=== PATIENT | male | born 1935 | race Caucasian/White ===

== ENCOUNTER 2017-07-11 14:38 | Emergency (ER) | payer OTHER ==
[~2017-07-11] VITALS: Ht 167.6 cm; Wt 72.6 kg
[~2017-07-11 14:38] MED LIST: ANALGESIC325 MG PO; ASPIRIN325; ASPIRIN81 M2 PO; CARISOPRODOL 3350 MG PO; CELEXA20 MG PO; FLEXERIL PO; FLOMAX PO; GLUCOTROL5 MG PO; HYDROCODONE-AP1 EAC6 PO; KEFLEX500 MG PO; LIPITOR20 MG PO; LISINOPRIL5 MG PO; LOPRESSOR 50 MG50 M1 PO; NICODERM CQ1 EAC1 TD; NITROGLYCERIN0.4 MG SL; NOHOMEMEDICATIONS; NORCO 5-325 TA1 EACH PO; OMEPRAZOLE20 M2 PO; PLAVIX 75 MG TA75 M1 PO; PLAVIX 75 MG TA75 MG PO; PRINIVIL5 MG PO; PROSCAR 5MG TABL5 M1 PO; TOPROL XL 25 MG25 M1 PO; TOPROL XL25 MG PO; VICODIN 5-5001 EACH PO; ZOCOR40 MG PO
[2017-07-11 15:13] LABS: ABSOLUTE BASOPHILS 0.1 thou/uL (0.0-0.2); ABSOLUTE EOSINOPHILS 0.3 thou/uL (0.0-0.7); ABSOLUTE MONOCYTES 0.8 thou/uL (0.0-1.2); ABSOLUTE NEUTROPHILS 4.8 thou/uL (1.6-8.1); BASOPHILS 1.4 %; EOSINOPHILS 4.5 %; HEMOGLOBIN 14.5 gm/dL (14.0-18.0); LYMPHOCYTES 14.2 %; MCH 31.5 pg (26.0-34.0); MCHC 33.8 g/dL (28.0-37.0); MCV 93.3 fL (80.0-100.0); MONOCYTES 11.5 %; MPV 8.3 fl. (7.2-11.1); NUCLEATED RBCS 0 /100WBC; PLATELET COUNT* 310 thou/uL (150-400); POLYS 68.4 %; RBC 4.61 mil/uL (4.50-6.00); RDW-CV 13.9 % (10.5-14.5)
[2017-07-11 15:20] LABS: ANION GAP 6 mmol/L (7-16); BUN 19 mg/dL (7-18); CALCIUM 8.5 mg/dL (8.5-10.1); CHLORIDE 107 mmol/L (98-107); CO2 29 mmol/L (21-32); CREATININE 1.6 mg/dL (0.6-1.3); GLUCOSE 207 mg/dL (70-99); POTASSIUM 4.3 mmol/L (3.5-5.1); SODIUM 142 mmol/L (136-145)
[2017-07-11] MEDS ORDERED: PERCOCET PO (15:23)
[2017-07-11] MEDS ORDERED: LIDOCAINE VISC100 ML SWISH&SPIT (15:23)
[2017-07-11] MEDS ORDERED: ACYCLOVIR 400400 MG PO (15:23)
[2017-07-11 15:27] LABS: ALBUMIN 3.5 g/dL (3.4-5.0); ALKALINE PHOSPHATASE 94 U/L (46-116); LIPASE 91 U/L (73-393); SGOT 14 U/L (15-37); SGPT 19 U/L (30-65); TOTAL BILIRUBIN 0.4 mg/dL (<0.1-1.0); TROPONIN-I LEVEL <0.06 ng/mL (<0.06)
[2017-07-11 15:36] VITALS: BP 139/61
--- NOTE | 2017-07-12 12:20 | EKG ---
[place] [address] ELECTROCARDIOGRAM REPORT Name: THAO ROQUE [facility] [id number] Admission: 07/11/17 Attend Phys: Discharge: 07/11/17 Date of : 37 Report #: [id number] THIS REPORT FOR: //name// [facility] ED Test Date: 2017-07-11 Test Time: 15:11:38 Pat Name: THAO ROQUE Department: Room: Gender: M Activities Specialist: : [id number] Requested By: Cassi Wise Order Number: [id number] Christopher MD: Jet Escobar Measurements Intervals [place] Rate: 72 P: 64 ID: [id number] QRS: -48 QRSD: 96 T: 59 QT: 383 QTc: 420 Interpretive Statements Sinus rhythm Abnormal R-wave progression, early transition Inferior infarct, old Compared to ECG 10/22/2016 11:46:09 No significant changes Electronically Signed On 07-12-2017 12:20:36 DUPLICATING MACHINE SERVICER by Jet Escobar [email or web address] <ELECTRONICALLY SIGNED> By: Jet Escobar MD, [facility] 07/12/17 1220 10 10 Jet Escobar MD, FAC /EPI
== END 2017-07-11 15:37 | disposition home or self-care (01) ==
LOC: M.ERS 14:38
PROVIDERS: Physician Assistant
DX: B02.9 Zoster without complications (principal); E11.65 Type 2 diabetes mellitus with hyperglycemia; N40.0 Benign prostatic hyperplasia without lower urinary tract symptoms; I25.10 Atherosclerotic heart disease of native coronary artery without angina pectoris; E78.5 Hyperlipidemia, unspecified

== ENCOUNTER 2019-04-03 15:46 | Inpatient (IN) | payer OTHER ==
[~2019-04-03] VITALS: Ht 175.3 cm; Wt 73.2 kg
[~2019-04-03 15:46] MED LIST changes: +ACYCLOVIR 400400 MG PO; +LIDOCAINE VISC100 ML SWISH&SPIT; +PERCOCET PO
[2019-04-03 16:00] VITALS: BP 182/84
[2019-04-03 16:14] LABS: URINE BILIRUBIN NEGATIVE (Negative); URINE BLOOD NEGATIVE (Negative); URINE CLARITY CLEAR; URINE COLOR YELLOW; URINE GLUCOSE-RANDOM NEGATIVE (Negative); URINE KETONES NEGATIVE (Negative); URINE LEUKOCYTES-REFLEX TRACE (Negative); URINE NITRITE-REFLEX NEGATIVE (Negative); URINE PROTEIN NEGATIVE (Negative); URINE UROBILINOGEN 0.2 E.U./dl (0.2-1.0)
[2019-04-03 16:20] LABS: BACTERIA-REFLEX 1-9 Few /HPF (None Seen); CASTS None Seen /LPF (None Seen); CRYSTALS None Seen /LPF (None Seen); SQUAMOUS 0-3 Few /LPF (0-3); URINE RBC 0-2 Rare /HPF (0-2); URINE WBC-REFLEX 0-5 Rare /HPF (0-5)
[2019-04-03 16:20] LABS: ABSOLUTE EOSINOPHILS 0.5 thou/uL (0.0-0.7); ABSOLUTE LYMPHOCYTES 2.5 thou/uL (0.8-5.3); ABSOLUTE MONOCYTES 1.5 thou/uL (0.0-1.2); ABSOLUTE NEUTROPHILS 7.8 thou/uL (1.6-8.1); BASOPHILS 0.2 %; EOSINOPHILS 4.1 %; HEMOGLOBIN 15.3 gm/dL (14.0-18.0); LYMPHOCYTES 20.3 %; MCH 31.6 pg (26.0-34.0); MCHC 33.9 g/dL (28.0-37.0); MONOCYTES 12.3 %; MPV 8.9 fl. (7.2-11.1); NUCLEATED RBCS 0 /100WBC; POLYS 63.1 %; RBC 4.84 mil/uL (4.50-6.00); RDW-CV 13.8 % (10.5-14.5); WBC 12.3 thou/uL (4.0-11.0)
[2019-04-03 16:43] LABS: ALBUMIN 3.6 g/dL (3.4-5.0); MAGNESIUM 1.9 mg/dL (1.8-2.4); TOTAL BILIRUBIN 0.4 mg/dL (<0.1-1.0); TOTAL PROTEIN 7.4 g/dL (6.4-8.2)
[2019-04-03 16:49] LABS: CALCIUM 9.4 mg/dL (8.5-10.1); CREATININE 1.4 mg/dL (0.6-1.3); POTASSIUM 4.3 mmol/L (3.5-5.1)
[2019-04-03 17:07] LABS: PLATELET COUNT* 268 thou/uL (150-400)
[2019-04-03 17:23] LABS: APTT 27.1 Seconds (25.0-31.3); PROTIME 10.6 Seconds (9.20-11.50)
[2019-04-03 19:46] VITALS: BP 161/75
[2019-04-03 20:00] VITALS: BP 148/64
[2019-04-04] VITALS: BP 154/57
[2019-04-04 04:00] VITALS: BP 169/65
[2019-04-04 04:52] LABS: ABSOLUTE BASOPHILS 0.1 thou/uL (0.0-0.2); ABSOLUTE EOSINOPHILS 0.7 thou/uL (0.0-0.7); ABSOLUTE LYMPHOCYTES 2.3 thou/uL (0.8-5.3); ABSOLUTE MONOCYTES 1.3 thou/uL (0.0-1.2); ABSOLUTE NEUTROPHILS 4.7 thou/uL (1.6-8.1); BASOPHILS 1.2 %; HEMATOCRIT 37.1 % (42.0-52.0); LYMPHOCYTES 25.4 %; MCH 31.2 pg (26.0-34.0); MCHC 33.7 g/dL (28.0-37.0); MCV 92.5 fL (80.0-100.0); MONOCYTES 14.4 %; MPV 8.6 fl. (7.2-11.1); NUCLEATED RBCS 0 /100WBC; PLATELET COUNT* 277 thou/uL (150-400); RBC 4.01 mil/uL (4.50-6.00); RDW-CV 13.6 % (10.5-14.5); WBC 9.2 thou/uL (4.0-11.0)
[2019-04-04 04:53] LABS: HEMOGLOBIN 12.5 gm/dL (14.0-18.0)
[2019-04-04 05:14] LABS: CHOLESTEROL 210 mg/dL (<200); HDL CHOLESTEROL 35 mg/dL (>40); LDL CHOLESTEROL 162 mg/dL (<100); TRIGLYCERIDE 67 mg/dL (<150); VLDL 13 mg/dL (<40)
[2019-04-04 05:15] LABS: SERUM ASSESSMENT CLEAR
[2019-04-04 05:17] LABS: CALCIUM 8.6 mg/dL (8.5-10.1); CREATININE 1.4 mg/dL (0.6-1.3); POTASSIUM 4.3 mmol/L (3.5-5.1)
--- NOTE | 2019-04-04 07:00 | NUR ---
RECEIVED REPORT FROM KALYANI MAYES. PT TRANSFERRED TO 211. PT A&OX4. CARPENTER ROUGH IN PLACE. VSS. ADMISSION HISTORY & PHYSICAL ASSESSMENT COMPLETED AND CHARTED. ORIENTED TO ROOM & CALL LIGHT. NIH CHARTED. PT DENIES ANY PAIN OR DISCOMFORT. PT ABLE TO SLEEP WELL ON BED. CALL LIGHT WITHIN REACH.
[2019-04-04 08:00] VITALS: BP 153/69
--- NOTE | 2019-04-04 15:53 | NUR ---
Pt is A&O. Resides at home with his . Independent, continues to drive. completes cooking and cleaning. Pt has a cane and RW at home that he can use if needed. Supportive kids. No hx of HH or SNF. Goal is home at [place], therapies following.
[2019-04-04 16:00] VITALS: BP 119/50
--- NOTE | 2019-04-04 17:52 | 2DMMODE ---
[place] [address] 2 D/M-MODE ECHOCARDIOGRAM Name: JUDETHAO Room: [address] IN .R.#: [id number] Admission: 04/03/19 Attend Phys: Julio Mondragon, Discharge: Date of : 37 Date of Service: 04/04/19 1752 Report #: [id number] THIS REPORT FOR: //name// APPROVED REPORT Study performed: 04/04/2019 10:05:17 EXAM: Comprehensive 2D, Doppler, and color-flow Echocardiogram BSA: 1.91 HR: 59 bpm BP: 153/69 mmHg Other Information Study Quality: Fair Indications CVA/TIA 2D Dimensions IVSd: 12.08 (7-11mm) LVOT Diam: 16.58 (18-24mm) LVDd: 41.43 mm PWd: 10.67 (7-11mm) Ascending Ao: 36.55 (22-36mm) LVDs: 31.49 (25-40mm) Aortic Root: 27.57 mm Aortic Valve AoV Peak Saúl.: 0.97 m/s AO Peak Gr.: 3.80 mmHg LVOT Max P.99 mmHg AO Mean Gr.: 2.21 mmHg LVOT Mean P.84 mmHg LVOT Max V: 1.00 m/s AO V2 VTI: 24.59 cm LVOT Mean V: 0.63 m/s TEJ (VTI): 2.47 cm2 LVOT V1 VTI: 28.09 cm Mitral Valve E/A Ratio: 0.71 MV Decel. Time: 184.40 ms MV E Max Saúl.: 0.64 m/s MV PHT: 53.48 ms MVA (PHT): 4.11 cm2 TDI E/Lateral E': 4.92 E/Medial E': 9.14 Medial E' Saúl.: 0.07 m/s Lateral E' Saúl.: 0.13 m/[place] [address] 2 D/M-MODE ECHOCARDIOGRAM Name: THAO ROQUEBUR Room: [address] IN [facility].#: [id number] Admission: 04/03/19 Attend Phys: Julio Mondragon, Discharge: Date of : 37 Date of Service: 04/04/19 1752 Report #: [id number] Pulmonary Valve PV Peak Saúl.: 1.03 m/s PV Peak Gr.: 4.22 mmHg Tricuspid Valve TR Peak Gr.: 22.95 mmHg Left Ventricle The left ventricle is normal size. There is normal LV segmental wall motion. There is normal left ventricular wall thickness. Left ventricular systolic function is normal. The left ventricular ejection fraction is within the normal range. LVEF is 55-60%. Grade I - abnormal relaxation pattern. Right Ventricle The right ventricle is normal size. The right ventricular systolic function is normal. Atria The left atrium size is normal. The right atrium size is normal. Aortic Valve Mild aortic valve sclerosis. No aortic regurgitation is present. There is no aortic valvular stenosis. Mitral Valve The mitral valve is normal in structure. Mild mitral regurgitation. No evidence of mitral valve stenosis. Tricuspid Valve The tricuspid valve is normal in structure. Trace tricuspid regurgitation. Pulmonic Valve The pulmonary valve is normal in structure. There is no pulmonic valvular regurgitation. Great Vessels The aortic root is normal in size. IVC is normal in size and collapses >50% with inspiration. Pericardium There is no pericardial effusion. <Conclusion> [place] [address] 2 D/M-MODE ECHOCARDIOGRAM Name: THAO ROQUE NAKIA Room: [address]#: [id number] Admission: 04/03/19 Attend Phys: Julio Mondragon, Discharge: Date of : 37 Date of Service: 04/04/19 1752 Report #: [id number] The left ventricle is normal size. There is normal left ventricular wall thickness. Left ventricular systolic function is normal. The left ventricular ejection fraction is within the normal range. LVEF is 55-60%. Grade I - abnormal relaxation pattern. The right ventricle is normal size. The left atrium size is normal. Mild aortic valve sclerosis. No aortic regurgitation is present. There is no aortic valvular stenosis. The mitral valve is normal in structure. Mild mitral regurgitation. The tricuspid valve is normal in structure. IVC is normal in size and collapses >50% with inspiration. There is no pericardial effusion. There is normal LV segmental wall motion. <ELECTRONICALLY SIGNED> By: Manjinder Macdonald MD, FACC 04/04/191751 51 51 Manjinder Macdonlad MD, FACC /INF
--- NOTE | 2019-04-04 19:00 | NUR ---
PT VSS, PT SB ON TELE. PT A&OX4, PT LOW FALL RISK AND STAND BY ASSIST DUE TO REPORTED LEFT SIDED WEAKNESS AT ADMISSION. HOURLY ROUNDING PERFORMED, POSSESSIONS AND CALL LIGHT WITHIN REACH
[2019-04-04 20:00] VITALS: BP 115/67
--- NOTE | 2019-04-04 20:00 | NUR ---
RECEIVED REPORT AND ASSUMED CARE OF PT, ASSESSMENT COMPLETED. SPEECH CLEAR. SL WEAKNESS TO LT HAND. TELEMETRY ON SHOWING SB. NO COMPLAINTS VOICED. WILL CONT TO MONITOR AND ASSIST NEEDED.
[2019-04-05] VITALS (8 sets, daily range): BP systolic 96–156; BP diastolic 51–68
--- NOTE | 2019-04-05 06:59 | NUR ---
SLEPT WELL TONIGHT. GAIT STEADY TO AND FROM BR WITH SBA. TELEMETRY CONT TO SHOW SB. NO COMPLAINTS VOICED. ANXIOUS TO GO HOME TODAY. HS GOALS OF REST AND SAFETY ACHIEVED. HOURLY ROUNDING OBSERVED.
--- NOTE | 2019-04-05 08:38 | EKG ---
[place] [address] ELECTROCARDIOGRAM REPORT Name: THAO ROQUE Room: [address] ADM IN M.R.#: [id number] Admission: 04/03/19 Attend Phys: Julio Mondragon MD Discharge: Date of : 37 Report #: [id number] THIS REPORT FOR: //name// [facility] ED Test Date: 2019-04-03 Test Time: 15:58:37 Pat Name: THAO ROQUE Department: Room: [facility] Gender: M Installation And Repair Technician: ILIANA : [id number] Requested By: Cassi Umaña Order Number: [id number] MD: Chuck Desai Measurements Intervals [place] Rate: 70 P: 22 WI: 161 QRS: -56 QRSD: 103 T: 41 QT: 393 QTc: 425 Interpretive Statements Sinus rhythm Ventricular premature complex Abnormal R-wave progression, early transition Inferior infarct, old Baseline wander in lead(s) III,aVL,aVF Compared to ECG 07/11/2017 15:11:38 Ventricular premature complex(es) now present Myocardial infarct finding still present Electronically Signed On 04-05-2019 8:37:54 CDT by Chuck Desai [email or web address] <ELECTRONICALLY SIGNED> By: Chuck Desai MD, FACC 04/05/19 0837 1558 1558 Chuck Desai MD, FACC /EPI
--- NOTE | 2019-04-05 10:24 | NUR ---
ASSUMED CARE OF PATIENT THIS AM AT 0730. PATIENT IS ALERT AND ORIENTED X 4. HE DENIES PAIN AND DISCOMFORT. PATIENT STATES THAT HIS STRENGTH HAS RETURNED TO HIS LEFT SIDE. HE IS KHAN WELL. TELE SHOWS SINUS JOAN. PATIENT IS ANTICIPATING DISCHARGE TODAY. PATIENT IS UP TO THE BATHROOM WITH STANDBY ASSIST.
--- NOTE | 2019-04-05 12:11 | NUR ---
Biomedical Analytical Scientist: Met with patient. Reviewed stroke signs and symptoms, secondary stroke prevention, medications discussed, BP managment pt plans to begin checking BP at home. Pt concerned that it will be difficult to quite smoking and increase activity level. Reports minor numbness in left arm and clumsy left hand, mild left facial droop. Reinforced stroke education. Pt plans to discharge to home.
[2019-04-05] MEDS ORDERED: LIPITOR 20 MG T20 M1 PO (13:07)
[2019-04-05] MEDS ORDERED: ASA5UEC PO (13:14)
[2019-04-05] MEDS ORDERED: CLOPIDOGREL75 MG PO (16:38)
[2019-04-05] MEDS ORDERED: ASPIR 8181 M1 PO (16:41)
--- NOTE | 2019-04-15 14:24 | CON ---
[address] [address] CONSULTATION Name: THAO ROQUEBUR Room: [address] IN M.R.#: [id number] Admission: 04/03/19 Attend Phys: Julio Mondragon MD Discharge: 04/05/19 Date of : 37 Report #: [id number] THIS REPORT FOR: //name// CC: Julio Gan Taz DATE OF SERVICE: 04/04/2019 HISTORY OF PRESENT ILLNESS: This is an 84-year-old male patient who was admitted with left-sided weakness. Weakness was in the whole arm, but now it is mostly at the hand. He can still make a fist, but it is not that strong. He did not have these kind of symptoms before. Exact duration of these symptoms, is not clear, but even in the Emergency Room, it was last night, and it was outside the window for any intervention. He has improved some. REVIEW OF SYSTEMS: Positive for hypertension. He is also noncompliant. He was not taking his medications. He does have a history of coronary artery disease. He was being followed by a physical sciences professor, but he has not seen them for some time. He apparently also has a history of diabetes as per records. 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 It is not clear when the strokes were and what kind of symptoms the strokes ____. He is supposed to be on multiple medications, but he has refused to take them. He does have trouble with prostate in the past. He apparently also has a history of hyperlipidemia. He denies any new eye, ENT, cardiac, respiratory, GI, , musculoskeletal, constitutional, dermatological, hematological, psychiatric, throat, allergic symptom associated with present symptomatology. He does have prior symptoms as summarized above. FAMILY HISTORY: Unremarkable. SOCIAL HISTORY: He has a history of smoking. PAST MEDICAL HISTORY: Positive for stroke. PHYSICAL EXAMINATION: Indicate he is alert, responsive, able to follow simple commands. His speech, concentration, fund of knowledge, and memory is at his baseline. Cranial nerve examination 2-12 does not appear to be showing any definite abnormality. There is no meningeal sign. There is no carotid bruit. Neuromuscular examination checked for strength, sensation, tone and reflexes appear unremarkable. Pulses are somewhat difficult to feel. Cardiac examinations appear unremarkable. No respiratory difficulty. He has adequate hearing and vision. Pulse is 54, temperature is 97.3. LABORATORY DATA: Indicate a white count of 9.2 and sodium 146. GFR is low at 48. [place] [address] CONSULTATION Name: THAO ROQUE Room: [address] IN [facility].#: [id number] Admission: 04/03/19 Attend Phys: Julio Mondragon MD Discharge: 04/05/19 Date of : 37 Report #: [id number] Imaging study indicates CT angio showing a right carotid stenosis, but it is intracranial. Extracranially, he does not appear to have much disease. IMPRESSION: The patient appeared to have a possible stroke on the right side. He also has a high-grade stenosis of the right carotid. ____ intracranial. However, because of that, I will suggest keeping his blood pressure somewhat high. We need an MRI to see if he has a stroke and what the location is. He was not taking any aspirin. He was put on aspirin and he needs to go back on his medication. All of it was discussed with the patient in detail and he understands that. Thank you very much for this referral. <ELECTRONICALLY SIGNED> By: Beny Antonio MD 04/15/19 1424 1816 04Beny Antonio MD /nt
== END 2019-04-05 17:50 | disposition home health service (06) | DRG 65 ==
LOC: M.ERS 15:46 → M.TBA-ER 18:30 → M.2W 18:30
PROVIDERS: Personal Emergency Response Attendant; ADMIT Internal Medicine
DX: I63.9 Cerebral infarction, unspecified (principal); E87.0 Hyperosmolality and hypernatremia; I12.9 Hypertensive chronic kidney disease with stage 1 through stage 4 chronic kidney disease, or unspecified chronic kidney disease; G83.24 Monoplegia of upper limb affecting left nondominant side; I16.0 Hypertensive urgency; N18.3 Chronic kidney disease, stage 3 (moderate); I25.10 Atherosclerotic heart disease of native coronary artery without angina pectoris; E78.5 Hyperlipidemia, unspecified; I65.21 Occlusion and stenosis of right carotid artery; F17.210 Nicotine dependence, cigarettes, uncomplicated; E11.51 Type 2 diabetes mellitus with diabetic peripheral angiopathy without gangrene; N40.0 Benign prostatic hyperplasia without lower urinary tract symptoms; E11.22 Type 2 diabetes mellitus with diabetic chronic kidney disease; E11.65 Type 2 diabetes mellitus with hyperglycemia; Z95.5 Presence of coronary angioplasty implant and graft; Z91.19 Patient's noncompliance with other medical treatment and regimen; Z71.6 Tobacco abuse counseling

== ENCOUNTER → 2019-08-24 | Outpatient (CLI) | payer MEDICARE ==
[~2019-08-24] MED LIST changes: +ASA5UEC PO; +ASPIR 8181 M1 PO; +CLOPIDOGREL75 MG PO; +LIPITOR 20 MG T20 M1 PO
[2019-08-24 12:36] LABS: ABSOLUTE BASOPHILS 0.2 thou/uL (0.0-0.2); ABSOLUTE EOSINOPHILS 0.7 thou/uL (0.0-0.7); ABSOLUTE LYMPHOCYTES 1.8 thou/uL (0.8-5.3); ABSOLUTE MONOCYTES 1.5 thou/uL (0.0-1.2); ABSOLUTE NEUTROPHILS 8.1 thou/uL (1.6-8.1); BASOPHILS 1.3 %; EOSINOPHILS 5.5 %; HEMATOCRIT 44.5 % (42.0-52.0); HEMOGLOBIN 14.9 gm/dL (14.0-18.0); LYMPHOCYTES 14.5 %; MCH 30.8 pg (26.0-34.0); MCHC 33.4 g/dL (28.0-37.0); MCV 92.1 fL (80.0-100.0); MPV 8.5 fl. (7.2-11.1); NUCLEATED RBCS 0 /100WBC; PLATELET COUNT* 376 thou/uL (150-400); POLYS 66.7 %; RBC 4.83 mil/uL (4.50-6.00); RDW-CV 14.1 % (10.5-14.5); WBC 12.1 thou/uL (4.0-11.0)
[2019-08-24 12:55] LABS: ALBUMIN 4.2 g/dL (3.4-5.0); CREATININE 1.8 mg/dL (0.6-1.3); MAGNESIUM 1.8 mg/dL (1.8-2.4); POTASSIUM 4.8 mmol/L (3.5-5.1); TOTAL BILIRUBIN 0.3 mg/dL (<0.1-1.0); TOTAL PROTEIN 8.2 g/dL (6.4-8.2)
== END ==
LOC: M.LAB 12:04
PROVIDERS: Nurse Practitioner
DX: I10 Essential (primary) hypertension (principal); R53.83 Other fatigue; R06.02 Shortness of breath

== ENCOUNTER → 2019-12-20 | Outpatient (CLI) | payer MEDICARE | LOC: M.ULTRA 12:51 | PROVIDERS: ATTEND Internal Medicine Cardiovascular Disease | DX: I77.1 Stricture of artery (principal); I73.9 Peripheral vascular disease, unspecified ==